=== PATIENT | female | born 1975 | race Caucasian/White ===

== ENCOUNTER 2018-10-14 18:06 | Emergency (ER) | payer MEDICAID ==
[~2018-10-14] VITALS: Ht 177.8 cm; Wt 140.9 kg
[2018-10-14 18:09] VITALS: Ht 177.8 cm; Wt 140.9 kg
[2018-10-14] MEDS ORDERED: ATIVAN1 MG PO (18:40)
[2018-10-14 19:27] VITALS: BP 141/83
== END 2018-10-14 19:27 | disposition home or self-care (01) ==
LOC: D.ER 18:06
DX: Z63.4 Disappearance and death of family member (principal)